=== PATIENT | female | born 1995 | race Caucasian/White ===

== ENCOUNTER → 2025-04-08 | Outpatient (REF) | payer OTHER | LOC: M SFHCWAGY 09:52 | PROVIDERS: ATTEND Nurse Practitioner Family | DX: Z34.93 Encounter for supervision of normal pregnancy, unspecified, third trimester (principal); Z3A.36 36 weeks gestation of pregnancy ==

== ENCOUNTER 2025-04-22 04:48 | Inpatient (IN) | payer OTHER ==
[2025-04-22] VITALS (50 sets, daily range): BP systolic 102–164; BP diastolic 55–103; O2SAT 98
[~2025-04-22] VITALS: Ht 172.7 cm; Wt 103.6 kg
[2025-04-22] MEDS ORDERED: CLAR10CA3 PO (05:27)
[2025-04-22] MEDS ORDERED: SERT-141 PO (05:27)
[2025-04-22] MEDS ORDERED: ACET-907 PO (05:27)
[2025-04-22] MEDS ORDERED: PRENTAB9 PO (05:27)
[2025-04-22] MEDS ORDERED: HOME MED LIST COMPLETE! XX SCH (05:30)
[2025-04-22 06:54] LABS: PLATELET COUNT, AUTOMATED 220 10^3/uL (150-450)
[2025-04-22] MEDS: LR 1,000 ML IV SCH (07:08)
[2025-04-22] MEDS ORDERED: NALOXONE INJ 0.4 MG/1 ML VIAL IV PRN (07:20)
[2025-04-22] MEDS ORDERED: EPIDURAL/PCA KEYS XX PRN (07:20)
[2025-04-22] MEDS ORDERED: diphenhydrAMINE 50 MG/ML VIAL IV PRN (07:20)
[2025-04-22] MEDS ORDERED: LR 500 ML IV PRN (07:20)
[2025-04-22] MEDS: FENTANYL/ROPIVACAINE/NACL BAG 100 ML EPIDURAL SCH (07:36)
[2025-04-22 07:43] LABS: HIV 1&2 SCREEN NEGATIVE (NEGATIVE)
[2025-04-22 07:50] LABS: HEPATITIS C VIRUS ABY INDEX < 0.02 INDEX (<0.8)
[2025-04-22] MEDS: ONDANSETRON 4MG 2ML VIAL IV PRN (10:38)
[2025-04-22] MEDS: OXYTOCIN DRIP 30 UNITS in IV 1 EA IV SCH (10:44)
[2025-04-22 20:26] LABS: CORD GAS ABE V -5.5; CORD GAS HCO3 V 19.0 MMOL/L; CORD GAS O2 SAT V 81.3 %; CORD GAS PCO2 V 34.6 mmHg; CORD GAS PH V 7.357 UNITS; CORD GAS PO2 V 35.5 mmHg; CORD GAS SBC V 19.6 MMOL/L; CORD GAS TCO2 V 20.0 MMOL/L
[2025-04-22 20:27] LABS: CORD GAS ABE A -6.2; CORD GAS HCO3 A 21.7 MMOL/L; CORD GAS O2 SAT A 27.0 %; CORD GAS PCO2 A 51.8 mmHg; CORD GAS PH A 7.239 UNITS; CORD GAS PO2 A 13.0 mmHg; CORD GAS SBC A 17.8 MMOL/L; CORD GAS TCO2 A 23.2 MMOL/L
[2025-04-22] MEDS ORDERED: METHYLERGONOVINE MALEATE 0.2 MG TAB PO PRN (20:35)
[2025-04-22] MEDS: ACETAMINOPHEN 500 MG TAB PO PRN (21:12)
[2025-04-22] MEDS: LORATADINE 10 MG TAB PO ONE (23:45)
[2025-04-22] MEDS: SERTRALINE HCL 50 MG TAB PO ONE (23:46)
[2025-04-23 06:00] VITALS: BP 115/63; O2SAT 100
[2025-04-23] MEDS: DOCUSATE SODIUM 100 MG CAPSULE PO PRN (08:02)
[2025-04-23] MEDS: IBUPROFEN 600 MG TAB PO PRN (08:02)
[2025-04-23] MEDS: PRENATAL VITAMINS CHEWABLE TABLET PO SCH (08:02)
[2025-04-23 17:56] VITALS: BP 126/75; O2SAT 98
[2025-04-23] MEDS: RHOGAM 300MCG (1500IU) INJ IM SCH (19:19)
[2025-04-23] MEDS: MEASLES,MUMPS,RUBELLA VACCINE INJ (MMR-II) SC.IMMUN ONE (19:19)
[2025-04-23] MEDS: SERTRALINE HCL 50 MG TAB PO SCH (20:25)
[2025-04-23] MEDS: LORATADINE 10 MG TAB PO SCH (20:25)
[2025-04-23] MEDS: ACETAMINOPHEN 325 MG TAB PO PRN (20:25)
[2025-04-24 05:52] VITALS: BP 135/63; O2SAT 97
[2025-04-24] MEDS: DIBUCAINE 1% OINTMENT 30 GM TOP PRN (07:24)
[2025-04-24] MEDS: IBUPROFEN 800 MG TAB PO PRN (16:02)
== END 2025-04-24 16:15 | disposition home or self-care (01) | DRG 807 ==
LOC: M LDO 04:48 → M LDI 05:18 → M OBS 22:47
PROVIDERS: ADMIT Advanced Practice Midwife; ATTEND Advanced Practice Midwife
PROC: 10E0XZZ Delivery of Products of Conception, External Approach (ICD-10-PCS; principal; 2025-04-22)
DX: O69.82X0 Labor and delivery complicated by other cord entanglement, without compression, not applicable or unspecified (principal); Z37.0 Single live birth; Z3A.38 38 weeks gestation of pregnancy